=== PATIENT | female | born 1955 | race Two or more races ===

== ENCOUNTER → 2019-08-23 | Outpatient (CLI) | payer MEDICARE, OTHER ==
[2019-08-23 08:50] VITALS: BP 147/79
[2019-08-23 09:36] VITALS: BP 165/84
== END | disposition home or self-care (01) ==
LOC: CARDMN 08:31
PROVIDERS: ATTEND Internal Medicine Cardiovascular Disease
DX: R07.9 Chest pain, unspecified (principal)
CPT/HCPCS: 93017